=== PATIENT | female | born 1975 | race Caucasian/White ===

== ENCOUNTER → 2019-07-24 15:00 | Outpatient (CLI) | payer MEDICARE, SELFPAY ==
--- NOTE | 2019-07-24 15:13 | XR_ITS ---
PROCEDURE: XR KNEE RT 3V CLINICAL INDICATION: PAIN COMPARISON: No exams were available for comparison FINDINGS: No fracture or dislocation. No lytic or blastic change. There is normal mineralization. There are mild osteoarthritic changes involving all 3 compartments with mild chondrocalcinosis of the medial and lateral meniscus. Soft tissue calcification noted in the suprapatellar region Other findings:None. IMPRESSION: Mild osteoarthritis with chondrocalcinosis. Nonspecific soft tissue calcification suprapatellar region which could be due to prior trauma Dictated by: Hardeep Mcdowell MD 07/24/2019 16:03 Electronically signed by Hardeep Mcdowell MD in [place] 07/24/2019 16:03
--- NOTE | 2019-07-24 15:13 | XR_ITS ---
PROCEDURE: XR KNEE LT 3V CLINICAL INDICATION: PAIN Posttraumatic pain COMPARISON: No exams were available for comparison FINDINGS: No fracture or dislocation. No lytic or blastic change. There is normal mineralization. Minimal osteoarthritic changes are present at the medial compartment and patellofemoral joint. There is an intramedullary lorna in the distal femur Other findings:None. IMPRESSION: Minimal osteoarthritic change Dictated by: Hardeep Mcdowell MD 07/24/2019 16:04 Electronically signed by Hardeep Mcdowell MD in [place] 07/24/2019 16:04
== END ==
PROVIDERS: PCP Pain Medicine Interventional Pain Medicine; Visit Provider Pain Medicine Interventional Pain Medicine
DX: M25.562 Pain in left knee (principal); M25.561 Pain in right knee
CPT/HCPCS: 73562